=== PATIENT | female | born 1985 | race Caucasian/White ===

== ENCOUNTER 2018-08-29 16:55 | Emergency (ER) | payer OTHER ==
[~2018-08-29] VITALS: Ht 160 cm; Wt 54.0 kg
[~2018-08-29 16:55] MED LIST: AMOXICILLIN875 MG PO; AUGMENTIN 875875 MG PO; BACTRIM DS TAB1 EACH PO; CIPRO500 M1 PO; CIPRO500 MG PO; FLAGYL500 MG PO; HYDROCODON-ACE1 EAC7 PO; HYDROCODONE-AP1 EAC6 PO; IBUPROFEN 800800 M1 PO; IBUPROFEN200 M2 PO; K-DUR 20 MEQ T20 MEQ PO; KEFLEX500 MG; KEFLEX500 MG PO; MACROBID 100 M100 M1 PO; MINOCYCLINE HC100 M2 PO; NAPROSYN500 MG PO; NORCO 5-325 TA1 EAC1 PO; NORCO 5-325 TA1 EACH PO; PHENAZOPYRIDIN200 M2 PO; PHENERGAN 25 MG25 M1 PO; PRENATAL; PROAIR HFA8.5 GM IH; REGLAN 10 MG TA10 MG PO; RIFAMPIN 300 M300 M1 PO; TESSALON PERLE100 MG PO; VALACYCLOVIR1000 MG PO; ZOFRAN ODT4 MG PO; ZOLOFT 50 MG TA50 M1
[2018-08-29] MEDS ORDERED: IBUPROFEN 600600 M1 PO (18:16)
[2018-08-29 18:41] VITALS: BP 109/49
== END 2018-08-29 18:42 | disposition home or self-care (01) ==
LOC: M.ERS 16:55
DX: S93.492A Sprain of other ligament of left ankle, initial encounter (principal); Z91.040 Latex allergy status; X50.3XXA Overexertion from repetitive movements, initial encounter; Y93.89 Activity, other specified; Y92.89 Other specified places as the place of occurrence of the external cause; Y99.8 Other external cause status